=== PATIENT | male | born 1960 | race African-American/Black ===

== ENCOUNTER 2016-11-22 18:43 | Emergency (ER) | payer SELFPAY ==
[~2016-11-22] VITALS: Ht 172.7 cm; Wt 49.9 kg
[~2016-11-22 18:43] MED LIST: CEPH-264 PO; Hydrocodone Bit/Acetaminophen PO; MULT-208 PO; PROVENTIL HFA6.7 GM IH
[2016-11-22 20:04] VITALS: BP 133/91
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
== END 2016-11-22 20:55 | disposition home or self-care (01) ==
LOC: ER 18:43
DX: F10.129 Alcohol abuse with intoxication, unspecified (principal); I10 Essential (primary) hypertension; J45.909 Unspecified asthma, uncomplicated
CPT/HCPCS: 99284